=== PATIENT | female | born 1990 | race Caucasian/White ===

== ENCOUNTER 2017-05-24 16:15 | Outpatient (CLI) | payer OTHER | END 2017-05-24 16:16 | LOC: LAB 16:15 | PROVIDERS: ATTEND Physician Assistant | DX: Z32.01 Encounter for pregnancy test, result positive (principal) | CPT/HCPCS: 36415; 84702; 84703 ==

== ENCOUNTER 2017-06-06 15:46 | Outpatient (CLI) | payer OTHER | END 2017-06-06 15:47 | LOC: LAB 15:46 | PROVIDERS: ATTEND Physician Assistant | DX: O03.9 Complete or unspecified spontaneous abortion without complication (principal) | CPT/HCPCS: 36415; 84702 ==

== ENCOUNTER 2017-06-13 15:44 | Outpatient (CLI) | payer OTHER | END 2017-06-13 15:45 | LOC: LAB 15:44 | PROVIDERS: ATTEND Physician Assistant | DX: O03.9 Complete or unspecified spontaneous abortion without complication (principal) | CPT/HCPCS: 36415; 84702 ==

== ENCOUNTER 2017-06-24 15:56 | Outpatient (CLI) | payer OTHER | END 2017-06-24 17:00 | LOC: LAB 15:56 | PROVIDERS: ATTEND Physician Assistant | DX: O03.9 Complete or unspecified spontaneous abortion without complication (principal) | CPT/HCPCS: 36415; 84702 ==